=== PATIENT | female | born 1985 | race Two or more races ===

== ENCOUNTER 2024-01-01 12:15 | Emergency (ER) | payer OTHER ==
[~2024-01-01] VITALS: Ht 170.2 cm; Wt 84.8 kg
[2024-01-01] MEDS ORDERED: BACITRACIN1 EACH TOP (15:27)
[2024-01-01] MEDS ORDERED: BACITRACIN 28.35 GM OINT.TUBE TOP ONE (15:30)
[2024-01-01] MEDS ORDERED: TETANUS & DIPHTHERIA TOX,ADULT 0.5 ML VIAL IM ONE (15:30)
== END 2024-01-01 16:20 | disposition home or self-care (01) ==
LOC: ER 12:17
DX: S01.521A Laceration with foreign body of lip, initial encounter (principal); W22.8XXA Striking against or struck by other objects, initial encounter; Y93.89 Activity, other specified; Y92.89 Other specified places as the place of occurrence of the external cause
CPT/HCPCS: 12011; 90471; 90714; 99282; J1670